=== PATIENT | male | born 1960 ===

== ENCOUNTER 2017-05-07 11:50 | Emergency (ER) | payer MEDICAID, OTHER ==
--- NOTE | 2017-05-07 13:04 | C.PDOC ---
History Of Present Illness Patient is a pleasant 57 yr old male who is c/o a rash on his right arm. He states the rash is red and itchy and has been present for 1 1/2 wks. He hasn't tried any creams for the rash. He had the same symptoms to his arm 8 months ago and was prescribed both a cream and pills. Pt denies fever. PMD: None . Time Seen by Provider: 05/07/17 12:35 Chief Complaint (Nursing): Abnormal Skin Integrity History Per: Patient History/Exam Limitations: no limitations Onset/Duration Of Symptoms: Days Past Medical History Reviewed: Historical Data, Nursing Documentation, Vital Signs Vital Signs: Last Vital Signs Temp 98.2 F 05/07/17 13:22 Pulse 70 05/07/17 13:22 Resp 16 05/07/17 13:22 BP 119/70 05/07/17 13:22 Pulse Ox 100 05/07/17 13:22 - Medical History Other PMH: Low platelets, rash to skin 8 months ago (early 2016) Family History: States: No Known Family Hx - Social History Hx Tobacco Use: Yes Hx Alcohol Use: No Hx Substance Use: No Review Of Systems Except As Marked, All Systems Reviewed And Found Negative. Constitutional: Negative for: Fever, Chills Cardiovascular: Negative for: Chest Pain Respiratory: Negative for: Shortness of Breath Skin: Positive for: Rash Neurological: Negative for: Weakness Physical Exam - Physical Exam Appears: Well, No Acute Distress Skin: Dry, Other (maculopapular rash noted to right arm, no eileen lesions seen , (+) scratch rosas) Head: Atraumatic Eye(s): bilateral: Normal Inspection, EOMI Ear(s): Bilateral: Normal Nose: Normal Oral Mucosa: Moist Tongue: Normal Appearing Lips: Normal Appearing Throat: Normal Neck: Normal Lymphatic: Deferred Chest: Symmetrical Cardiovascular: Rhythm Regular Respiratory: Normal Breath Sounds Extremity: Normal ROM, Other (see skin exam) Extremity: Bilateral: Atraumatic Pulses: Left Radial: Normal, Right Radial: Normal Neurological/Psych: Oriented x3, Normal Motor, Normal Sensation ED Course And Treatment O2 Sat by Pulse Oximetry: 98 Medical Decision Making Medical Decision Making: Initial Impression: Dermatitis Initial Plan: Will d/c home on steroid cream Disposition Counseled Patient/Family Regarding: Diagnosis, Need For Followup, Rx Given - Disposition Referrals: [facility] [Outside] Disposition: HOME/ ROUTINE Disposition Time: 13:02 Condition: GOOD Additional Instructions: Mr. Christina, thank you for letting us take care of you today. Return to the ER if your symptoms worsen, or if any problems. Take the medication listed below as prescribed. You need to follow up at our [facility] ([facility] Please call the phone number listed below to make an appointment. Prescriptions: Hydrocortisone 1% Cream [Cortizone 1% Cream] 1 applic EXT BID #1 tube predniSONE [predniSONE Tab] 1 tab PO BID #10 tab Instructions: Contact Dermatitis (ED) Forms: Gen Discharge Inst Pakistani Print Language: MAORI - POA Present On Arrival: None - Clinical Impression Clinical Impression: Contact dermatitis
[2017-05-07 13:23] VITALS: BP 119/70; PULSE 70; RESP 16; TEMP 98.2
[2017-05-08 17:02] VITALS: O2SAT 98
== END 2017-05-07 13:22 | disposition home or self-care (01) ==
LOC: C.ER 11:50
DX: L25.9 Unspecified contact dermatitis, unspecified cause (principal); Z87.891 Personal history of nicotine dependence

== ENCOUNTER 2017-08-30 17:47 | Emergency (ER) | payer MEDICAID, OTHER ==
[2017-08-30 17:57] VITALS: BMI 24.7
[2017-08-30 18:01] VITALS: O2SAT 98
[2017-08-30] MEDS ORDERED: Sodium Chloride 0.9% 1,000 ML IV SCH (19:30)
[2017-08-30] MEDS ORDERED: Sodium Chloride 0.9% 1,000 ML ONE (19:41)
[2017-08-30 20:11] LABS: BASO % 0.4 % (0.0-2.0); EOS # 0.1 K/uL (0.0-0.7); HEMOGLOBIN 15.2 g/dL (12.0-18.0); LYMPH # 1.9 K/uL (1.0-4.3); MEAN CORPUSCULAR HEMOGLOBIN 30.9 pg (27.0-31.0); MEAN PLATELET VOLUME 11.6 fL (7.2-11.7); MONO # 0.6 K/uL (0.0-0.8); NEUT % 73.1 % (50.0-75.0); WHITE BLOOD COUNT 9.8 K/uL (4.8-10.8)
[2017-08-30 20:22] LABS: EOS % 0.9 % (0.0-4.0); LYMPH % 19.6 % (20.0-40.0); MEAN CELL VOLUME 88.1 fL (80.0-94.0); MEAN CORPUSCULAR HGB CONC 35.1 g/dL (33.0-37.0); NEUT # 7.2 K/uL (1.8-7.0); RBC 4.91 Mil/uL (4.40-5.90); RED CELL DISTRIBUTION WIDTH 13.1 % (11.5-14.5)
[2017-08-30 20:23] LABS: CALCIUM 9.5 mg/dl (8.6-10.4); GFR AFRICAN-AMERICAN > 60; GFR NON-AFRICAN AMERICAN > 60
[2017-08-30 20:26] LABS: ALB/GLOB RATIO 1.3 (1.0-2.1); ALBUMIN 4.2 g/dL (3.5-5.0); ALT/SGPT 27 U/L (21-72); AST/SGOT 36 U/L (17-59); BLOOD UREA NITROGEN 11 mg/dL (9-20)
--- NOTE | 2017-08-30 21:12 | C.PDOC ---
History Of Present Illness 57 yr old male presents to the ER with complaints of intermittent dizziness and dry cough for the past few days. Patient states he did not take any medication. Denies recent travel, change in appetite, fever, chills, chest pain, SOB, weakness or numbness. Time Seen by Provider: 08/30/17 19:13 Chief Complaint (Nursing): Dizziness/Lightheaded History Per: Patient History/Exam Limitations: no limitations Onset/Duration Of Symptoms: Intermittent Episodes (few days) Past Medical History Reviewed: Historical Data, Nursing Documentation, Vital Signs Vital Signs: Last Vital Signs Temp 98 F 08/30/17 21:21 Pulse 58 L 08/30/17 21:21 Resp 20 08/30/17 21:21 BP 140/79 08/30/17 21:21 Pulse Ox 98 08/30/17 21:21 Family History: States: No Known Family Hx - Social History Hx Tobacco Use: Yes Hx Alcohol Use: No Hx Substance Use: No - Immunization History Hx Tetanus Toxoid Vaccination: No Hx Influenza Vaccination: No Hx Pneumococcal Vaccination: No Review Of Systems Except As Marked, All Systems Reviewed And Found Negative. Constitutional: Negative for: Fever, Chills Cardiovascular: Negative for: Chest Pain Respiratory: Positive for: Cough (dry). Negative for: Shortness of Breath Neurological: Positive for: Dizziness. Negative for: Weakness, Numbness Physical Exam - Physical Exam Appears: Non-toxic, No Acute Distress Skin: Warm, Dry, No Rash Head: Atraumatic, Normacephalic Eye(s): bilateral: Normal Inspection, PERRL, EOMI Oral Mucosa: Moist Neck: Normal, Normal ROM, Supple Cardiovascular: Rhythm Regular, No Murmur Respiratory: Normal Breath Sounds, No Rales, No Rhonchi, No Wheezing Gastrointestinal/Abdominal: Normal Exam, Soft, No Tenderness, No Guarding, No Rebound Neurological/Psych: Oriented x3, Normal Speech ED Course And Treatment - Laboratory Results Result Diagrams: 08/30/17 20:07 08/30/17 20:07 ECG: Interpreted By Me, Viewed By Me ECG Rhythm: Sinus Rhythm Rate From EC (BPM) O2 Sat by Pulse Oximetry: 98 (RA) Pulse Ox Interpretation: Normal Medical Decision Making Medical Decision Making: PLAN: * CXR * EKG * Labs * Meclizine PO * Sodium Chloride IV Disposition - Disposition Referrals: [facility] [Outside] [facility] [Outside] Disposition: HOME/ ROUTINE Disposition Time: 20:40 Condition: IMPROVED Additional Instructions: Thank you for letting us take care of you today. The emergency medical care you received today was directed at your acute symptoms. If you were prescribed any medication, please fill it and take as directed. It may take several days for your symptoms to resolve. Return to the Emergency Department if your symptoms worsen, do not improve, or if you have any other problems. Please contact your doctor or call one of the physicians/clinics you have been referred to that are listed on the Patient Visit Information form that is included in your discharge packet. Bring any paperwork you were given at discharge with you along with any medications you are taking to your follow up visit. Our treatment cannot replace ongoing medical care by a primary care provider (PCP) outside of the emergency department. Thank you for allowing the [facility] team to be part of your care today. Follow up with the clinic this week for re-evaluation and further management. Toi por dejarnos atenderlo hoy. La atencin mdica de emergencia que recibi hoy estaba dirigida a chela sntomas agudos. Si le prescribieron algn medicamento, llnelo y tome segn las indicaciones. Chela sntomas pueden tardar varios cartagena en resolverse. Regrese al Departamento de Emergencia si chela s ntomas empeoran, no mejoran o si tiene algn otro problema. Comunquese con [place] mdico o llame a seema de los mdicos / clnicas a los que tim sido referido que figura en el formulario de Informacin de visita del paciente que se incluye en [place] paquete de ivelisse. Traiga todos los documentos que recibi al momento del ivelisse junto con los medicamentos que est tomando en caldwell visita de seguimiento. Nuestro tratamiento no puede reemplazar la atencin mdica en curso por parte de un proveedor de atencin primaria (PCP) fuera del departamento de emergencias. Toi por permitir que el equipo de [facility] sea parte de caldwell cuidado hoy. Bobby un seguimiento con la clnica esta semana para fanta reevaluacin y administracin adicional. Prescriptions: Meclizine [Meclizine*] 25 mg PO Q6 PRN #20 tab PRN Reason: Dizziness Instructions: Vertigo (a Type of Dizziness) Forms: Gen Discharge Inst Liberian Print Language: WELSH - Clinical Impression Clinical Impression: Vertigo - Scribe Statement The provider has reviewed the documentation as recorded by the Scribe Kim Arellano Provider Attestation: All medical record entries made by the Scribe were at my direction and personally dictated by me. I have reviewed the chart and agree that the record accurately reflects my personal performance of the history, physical exam, medical decision making, and the department course for this patient. I have also personally directed, reviewed, and agree with the discharge instructions and disposition.
[2017-08-30 21:23] VITALS: BP 140/79; PULSE 58; RESP 20; TEMP 98
--- NOTE | 2017-08-31 08:42 | RAD ---
Chest x-ray single frontal view History: Cough. Infiltrate. Comparison: None available. Findings: No focal infiltrate or effusion. Heart size within normal limits. Impression: No focal infiltrate or effusion.
--- NOTE | 2017-08-31 11:40 | CARD ---
APPROVED REPORT EKG Measurement Heart [id number] <Conclusion> Normal sinus rhythm Normal ECG
== END 2017-08-30 21:22 | disposition home or self-care (01) ==
LOC: C.ER 17:47
DX: R42 Dizziness and giddiness (principal)
CPT/HCPCS: 71045; 80053; 84484; 85025; 93005; 99285; J7040